=== PATIENT | male | born 1950 | race Caucasian/White ===

== ENCOUNTER 2024-05-13 17:07 | Inpatient (IN) | payer MEDICARE ==
[~2024-05-13] VITALS: Ht 180.3 cm; Wt 98.2 kg
[~2024-05-13 17:07] MED LIST: FERR-39 PO; PANT-47 PO
[2024-05-13 19:43] LABS: LYMPHOCYTES # (AUTO) 2.2 X10'3 (1.1-4.8); MONOCYTES # (AUTO) 0.3 X10'3 (0-0.9); WHITE BLOOD COUNT 5.2 X10'3 (4.5-11.0)
[2024-05-13 19:45] LABS: BASOPHILS % (AUTO) 0.3 % (0-1); EOSINOPHILS % (AUTO) 0.4 % (0-6); HEMOGLOBIN 7.3 g/dl (14.0-17.9); LYMPHOCYTES % (AUTO) 42.3 % (21-51); MEAN CORPUSCULAR HEMOGLOBIN 31.9 PG (27.0-31.0); MEAN CORPUSCULAR HGB CONC 35.6 g/dL (33.0-36.5); MEAN CORPUSCULAR VOLUME 89.6 FL (78-98); MEAN PLATELET VOLUME 6.2 FL (7.4-10.4); MONOCYTES % (AUTO) 5.8 % (2-12); NEUTROPHILS # (AUTO) 2.6 X10'3 (1.8-7.7); NEUTROPHILS % (AUTO) 51.2 % (42-75); PLATELET COUNT 141 X10'3 (140-440); RED BLOOD COUNT 2.27 X10'6 (4.70-6.10); RED CELL DISTRIBUTION WIDTH 20.4 % (11.5-14.5)
[2024-05-13 19:47] LABS: HEMATOCRIT 20.4 % (42.0-52.0)
[2024-05-13] MEDS: normal saline 1000ml 1,000 ML IV ONE (19:55)
[2024-05-13] MEDS: ondansetron/PF 4mg/2ml inj IV STA (19:56)
[2024-05-13] MEDS: morphine 4 MG/ML inj SYRINge IV ONE (19:57)
[2024-05-13 20:12] LABS: ALANINE AMINOTRANSFERASE 10 U/L (12-78); ALBUMIN 2.7 G/DL (3.4-5.0); ALKALINE PHOSPHATASE 99 IU/L (46-116); ANION GAP 10 (8-16); ASPARTATE AMINO TRANSFERASE 15 U/L (10-37); BILIRUBIN,TOTAL 0.7 MG/DL (0.1-1.0); BLOOD UREA NITROGEN 18 MG/DL (7-18); C-REACTIVE PROTEIN 6.43 MG/DL (0.0-0.5); CALCIUM 9.4 MG/DL (8.5-10.1); CHLORIDE 99 MMOL/L (99-107); GLUCOSE 89 MG/DL (70-104); SODIUM 134 MMOL/L (135-145); TOTAL CARBON DIOXIDE 25.5 MMOL/L (24-32); eCRCL 57 ML/MIN; eGFR 59 ML/MIN
[2024-05-13] MEDS: VANCOMYCIN 1.75GM/WATER FOR INJ (PEG) 350 ML IVPB IV ONE (20:13)
[2024-05-13 20:35] LABS: ALBUMIN/GLOBULIN RATIO 0.2 (1.1-1.5); TOTAL PROTEIN 13.8 G/DL (6.4-8.2)
[2024-05-13] MEDS ORDERED: magnesium sulf-water 2g/50mL 50 ML IV PRN (21:25)
[2024-05-13] MEDS ORDERED: magnesium sulf-water 4G/100mL 100 ML IV PRN (21:25)
[2024-05-13] MEDS ORDERED: magnesium hydroxide 30ml (MOM) UD suspension PO PRN (21:25)
[2024-05-13] MEDS ORDERED: potassium Cl 40MEQ/1/2NS 520ml 520 ML IV PRN (21:25)
[2024-05-13] MEDS ORDERED: ondansetron/PF 4mg/2ml inj IV PRN (21:25)
[2024-05-13] MEDS ORDERED: mag hydrox/Alum hydrox/simeth 30ml oral suspension PO PRN (21:25)
[2024-05-13] MEDS ORDERED: potassium Cl 20 mEq SR tablet PO PRN ×2 (21:25)
[2024-05-13] MEDS ORDERED: HYDROcodone/acetaminophen 5mg/325mg tablet PO PRN (21:55)
[2024-05-13] MEDS ORDERED: morphine 2 MG/ML inj. syringe IV PRN (21:55)
[2024-05-13] MEDS ORDERED: acetaminophen 325mg tablet PO PRN (21:55)
[2024-05-13] MEDS: normal saline 1000ml 1,000 ML IV SCH (22:22)
[2024-05-14] VITALS (13 sets, daily range): BP systolic 97–159; BP diastolic 47–79; PULSE 66–83; RESP 16–22; TEMP 97.9–98.8; O2SAT 94–96
[2024-05-14] MEDS: acetaminophen 325mg tablet PO PRN (00:19)
[2024-05-14] MEDS: piperacillin/tazo 3.375gm/50ml 50 ML IV SCH (00:19)
[2024-05-14 00:50] LABS: ALANINE AMINOTRANSFERASE 6 U/L (12-78); ALBUMIN 2.4 G/DL (3.4-5.0); ALKALINE PHOSPHATASE 89 IU/L (46-116); ANION GAP 4 (8-16); ASPARTATE AMINO TRANSFERASE 13 U/L (10-37); BILIRUBIN,TOTAL 0.6 MG/DL (0.1-1.0); BLOOD UREA NITROGEN 19 MG/DL (7-18); BUN/CREATININE RATIO 15.4 (10.0-20.0); CALCIUM 8.5 MG/DL (8.5-10.1); CHLORIDE 100 MMOL/L (99-107); CREATININE 1.23 MG/DL (0.60-1.10); GLUCOSE 94 MG/DL (70-104); MAGNESIUM 2.1 MG/DL (1.5-2.4); POTASSIUM 4.2 MMOL/L (3.5-5.1); PRO BRAIN NATRIURETIC PEPTIDE 559 PG/ML (0-450); SODIUM 133 MMOL/L (135-145); TOTAL CARBON DIOXIDE 28.9 MMOL/L (24-32); eCRCL 55 ML/MIN; eGFR 57 ML/MIN
[2024-05-14 01:16] LABS: ALBUMIN/GLOBULIN RATIO 0.8 (1.1-1.5); TOTAL PROTEIN 5.5 G/DL (6.4-8.2)
[2024-05-14] MEDS: HYDROcodone/acetaminophen 10/325mg tab PO PRN (01:57)
[2024-05-14 03:24] LABS: BASOPHILS % (AUTO) 0.2 % (0-1); EOSINOPHILS % (AUTO) 0.4 % (0-6); LYMPHOCYTES # (AUTO) 1.4 X10'3 (1.1-4.8); LYMPHOCYTES % (AUTO) 25.7 % (21-51); MEAN CORPUSCULAR HEMOGLOBIN 31.4 PG (27.0-31.0); MEAN CORPUSCULAR VOLUME 89.8 FL (78-98); MONOCYTES # (AUTO) 0.3 X10'3 (0-0.9); NEUTROPHILS # (AUTO) 3.8 X10'3 (1.8-7.7); NEUTROPHILS % (AUTO) 67.7 % (42-75); PLATELET COUNT 113 X10'3 (140-440); RED BLOOD COUNT 1.99 X10'6 (4.70-6.10); RED CELL DISTRIBUTION WIDTH 20.5 % (11.5-14.5); WHITE BLOOD COUNT 5.5 X10'3 (4.5-11.0)
[2024-05-14 03:30] LABS: HEMATOCRIT 17.9 % (42.0-52.0); HEMOGLOBIN 6.2 g/dl (14.0-17.9)
[2024-05-14 03:37] LABS: APTT 32 SECONDS (22-32); INR 1.1 INR; PROTHROMBIN TIME 11.5 SECONDS (9.0-12.0)
[2024-05-14] MEDS: vancomycin/NS 1 GM ADD-VANTAGE 250 ML IV SCH (07:17)
[2024-05-14] MEDS: ferrous sulfate 325mg tablet PO SCH (07:21)
[2024-05-14] MEDS: pantoprazole 40mg Tablet.DR PO SCH (07:21)
[2024-05-14] MEDS: docusate sod 100mg capsule PO SCH (07:22)
[2024-05-14] MEDS: heparin, porcine 5000 units/ml vial SQ SCH (07:22)
[2024-05-14] MEDS: K and/or MAG REPLACEMENT MC SCH (08:00)
[2024-05-14] MEDS: morphine 2 MG/ML inj. syringe IV PRN (14:08)
[2024-05-14] MEDS: NICOTINE POLACRILEX 2 MG LOZENGE BC PRN (15:18)
[2024-05-14 17:00] LABS: MEAN CORPUSCULAR HEMOGLOBIN 30.6 PG (27.0-31.0); MEAN CORPUSCULAR HGB CONC 34.2 g/dL (33.0-36.5); MEAN CORPUSCULAR VOLUME 89.6 FL (78-98); MEAN PLATELET VOLUME 6.2 FL (7.4-10.4); PLATELET COUNT 113 X10'3 (140-440); RED BLOOD COUNT 2.16 X10'6 (4.70-6.10); RED CELL DISTRIBUTION WIDTH 19.5 % (11.5-14.5); WHITE BLOOD COUNT 4.8 X10'3 (4.5-11.0)
[2024-05-14 17:08] LABS: HEMATOCRIT 19.3 % (42.0-52.0); HEMOGLOBIN 6.6 g/dl (14.0-17.9)
[2024-05-15] VITALS (8 sets, daily range): BP systolic 129–159; BP diastolic 69–82; PULSE 63–71; RESP 16–22; TEMP 97.6–98.6; O2SAT 92–98
[2024-05-15 06:57] LABS: BASOPHILS % (AUTO) 0.2 % (0-1); EOSINOPHILS % (AUTO) 0.7 % (0-6); HEMOGLOBIN 7.1 g/dl (14.0-17.9); LYMPHOCYTES % (AUTO) 43.9 % (21-51); MEAN CORPUSCULAR HEMOGLOBIN 30.6 PG (27.0-31.0); MEAN CORPUSCULAR HGB CONC 34.7 g/dL (33.0-36.5); MEAN CORPUSCULAR VOLUME 88.2 FL (78-98); MEAN PLATELET VOLUME 5.9 FL (7.4-10.4); MONOCYTES # (AUTO) 0.3 X10'3 (0-0.9); NEUTROPHILS # (AUTO) 2.2 X10'3 (1.8-7.7); NEUTROPHILS % (AUTO) 49.2 % (42-75); PLATELET COUNT 108 X10'3 (140-440); RED BLOOD COUNT 2.34 X10'6 (4.70-6.10); RED CELL DISTRIBUTION WIDTH 19.3 % (11.5-14.5); WHITE BLOOD COUNT 4.5 X10'3 (4.5-11.0)
[2024-05-15 07:05] LABS: HEMATOCRIT 20.6 % (42.0-52.0)
[2024-05-15 07:37] LABS: ALANINE AMINOTRANSFERASE 8 U/L (12-78); ALBUMIN 2.2 G/DL (3.4-5.0); ALBUMIN/GLOBULIN RATIO 0.2 (1.1-1.5); ALKALINE PHOSPHATASE 78 IU/L (46-116); ANION GAP 5 (8-16); ASPARTATE AMINO TRANSFERASE 12 U/L (10-37); BILIRUBIN,TOTAL 0.8 MG/DL (0.1-1.0); BLOOD UREA NITROGEN 19 MG/DL (7-18); BUN/CREATININE RATIO 14.6 (10.0-20.0); CALCIUM 8.5 MG/DL (8.5-10.1); CHLORIDE 103 MMOL/L (99-107); GLUCOSE 87 MG/DL (70-104); MAGNESIUM 2.2 MG/DL (1.5-2.4); SODIUM 133 MMOL/L (135-145); TOTAL CARBON DIOXIDE 25.2 MMOL/L (24-32); TOTAL PROTEIN 11.4 G/DL (6.4-8.2); VANCOMYCIN,TROUGH 16.7 ug/mL (10.0-20.0); eCRCL 52 ML/MIN; eGFR 54 ML/MIN
[2024-05-15] MEDS: VANCOMYCIN LEVEL IV ONE (08:18)
[2024-05-15 09:02] LABS: ANISOCYTOSIS 2+; PLATELET ESTIMATE DECREASED
[2024-05-15 09:04] LABS: HYPOCHROMASIA 1+; POLYCHROMASIA FEW; ROULEAUX 1+
[2024-05-15 14:21] LABS: HEMOGLOBIN 7.3 g/dl (14.0-17.9); MEAN CORPUSCULAR HEMOGLOBIN 30.9 PG (27.0-31.0); MEAN CORPUSCULAR HGB CONC 34.6 g/dL (33.0-36.5); MEAN CORPUSCULAR VOLUME 89.3 FL (78-98); MEAN PLATELET VOLUME 6.4 FL (7.4-10.4); PLATELET COUNT 122 X10'3 (140-440); RED BLOOD COUNT 2.36 X10'6 (4.70-6.10); RED CELL DISTRIBUTION WIDTH 19.4 % (11.5-14.5); WHITE BLOOD COUNT 3.8 X10'3 (4.5-11.0)
[2024-05-15 14:25] LABS: HEMATOCRIT 21.1 % (42.0-52.0)
[2024-05-15] MEDS: PEG 3350/Na sulf,bicarb,Cl/KCl oral sol 4 liter bottle PO ONE (16:05)
[2024-05-16 06:00] VITALS: BP 155/76; PULSE 72; RESP 18; TEMP 98.1; O2SAT 92
[2024-05-16 06:11] LABS: HEMOGLOBIN 7.2 g/dl (14.0-17.9); LYMPHOCYTES # (AUTO) 1.6 X10'3 (1.1-4.8); MEAN PLATELET VOLUME 6.1 FL (7.4-10.4); WHITE BLOOD COUNT 3.8 X10'3 (4.5-11.0)
[2024-05-16 06:14] LABS: BASOPHILS % (AUTO) 0.4 % (0-1); EOSINOPHILS % (AUTO) 0.8 % (0-6); LYMPHOCYTES % (AUTO) 42.3 % (21-51); MEAN CORPUSCULAR HEMOGLOBIN 30.8 PG (27.0-31.0); MEAN CORPUSCULAR HGB CONC 34.9 g/dL (33.0-36.5); MEAN CORPUSCULAR VOLUME 88.2 FL (78-98); MONOCYTES # (AUTO) 0.2 X10'3 (0-0.9); MONOCYTES % (AUTO) 5.8 % (2-12); NEUTROPHILS # (AUTO) 1.9 X10'3 (1.8-7.7); NEUTROPHILS % (AUTO) 50.7 % (42-75); PLATELET COUNT 117 X10'3 (140-440); RED BLOOD COUNT 2.35 X10'6 (4.70-6.10); RED CELL DISTRIBUTION WIDTH 19.1 % (11.5-14.5)
[2024-05-16 06:24] LABS: ALBUMIN 2.2 G/DL (3.4-5.0); ALBUMIN/GLOBULIN RATIO 0.2 (1.1-1.5); ALKALINE PHOSPHATASE 79 IU/L (46-116); ANION GAP 6 (8-16); ASPARTATE AMINO TRANSFERASE 13 U/L (10-37); BILIRUBIN,TOTAL 0.8 MG/DL (0.1-1.0); BLOOD UREA NITROGEN 15 MG/DL (7-18); BUN/CREATININE RATIO 11.9 (10.0-20.0); CALCIUM 8.8 MG/DL (8.5-10.1); CHLORIDE 102 MMOL/L (99-107); CREATININE 1.26 MG/DL (0.60-1.10); GLUCOSE 87 MG/DL (70-104); MAGNESIUM 2.2 MG/DL (1.5-2.4); POTASSIUM 3.6 MMOL/L (3.5-5.1); SODIUM 134 MMOL/L (135-145); TOTAL CARBON DIOXIDE 26.5 MMOL/L (24-32); TOTAL PROTEIN 11.9 G/DL (6.4-8.2); eCRCL 54 ML/MIN; eGFR 56 ML/MIN
[2024-05-16 06:28] LABS: ALANINE AMINOTRANSFERASE < 6 U/L (12-78)
[2024-05-16 06:31] LABS: HEMATOCRIT 20.8 % (42.0-52.0)
[2024-05-16 10:00] VITALS: BP 118/66; PULSE 70; RESP 15; TEMP 98.4; O2SAT 95
[2024-05-16] MEDS ORDERED: NICO-907 BC (10:11)
[2024-05-16] MEDS ORDERED: AMOX-580 PO (10:11)
[2024-05-19 06:31] LABS: OCCULT BLOOD STOOL NEGATIVE (Neg)
== END 2024-05-16 11:15 | disposition home health service (06) | DRG 603 ==
LOC: ER 17:08 → UNDOADMIN 21:23 → ED HOLD 21:23 → ORTHO 4S 05-14 01:06
PROVIDERS: ADMIT Student in an Organized Health Care Education/Training Program; ATTEND Family Medicine
DX: L03.115 Cellulitis of right lower limb (principal); I50.32 Chronic diastolic (congestive) heart failure; Z59.00 Homelessness unspecified; F17.210 Nicotine dependence, cigarettes, uncomplicated; N18.30 Chronic kidney disease, stage 3 unspecified; D63.8 Anemia in other chronic diseases classified elsewhere; S81.801A Unspecified open wound, right lower leg, initial encounter; X58.XXXA Exposure to other specified factors, initial encounter; Y93.89 Activity, other specified; Y92.89 Other specified places as the place of occurrence of the external cause; Y99.8 Other external cause status
CPT/HCPCS: 36415; 36430; 71045; 80053; 80202; 82272; 83605; 83735; 83880; 85008; 85025; 85027; 85610; 85651; 85730; 86140; 86885; 86900; 86901; 86920; 87040; 87081; 96365; 96375; 99285; A6258; A6446; A6449; G0378; J1644; J2270; J2405; J2543; J3370; J3372; J7030; J7040; P9016